=== PATIENT | male | born 1965 | race African-American/Black ===

== ENCOUNTER 2017-02-13 16:15 | Emergency (ER) | payer MEDICARE, OTHER ==
[~2017-02-13] VITALS: Ht 167.6 cm; Wt 90.0 kg
[2017-02-13 16:17] VITALS: BP 167/100; PULSE 82; RESP 20; TEMP 98.6; O2SAT 98
--- NOTE | 2017-02-13 16:26 | PD ---
Physical Exam Time Seen by Provider: 16:25 Narrative 51 y/o male here for evaluation of back pain, chronic, worse today. Vital signs reviewed. Seen at triage desk. Awaiting bed placement. Data Data Last Documented VS Vital Signs Date Time Temp Pulse Resp B/P Pulse Ox O2 Delivery O2 Flow Rate FiO2 02/13/17 16:17 98.6 82 20 167/100 98 Room Air MDM Medical Record Reviewed: Yes Supervised Visit with CHUYITA: Ayad Arredondo Feb 13, 2017 16:26
--- NOTE | 2017-02-13 18:41 | PD ---
HPI Chief Complaint: Back/ Neck Pain or Injury Time Seen by Provider: 18:15 Travel History International Travel<30 days: No Contact w/Intl Traveler<30days: No Traveled to known affect area: No History of Present Illness HPI 51-year-old male presents emergency department for evaluation of left low back pain radiating down into his buttocks times one week. Patient reports he was swimming and playing with his children in the pool approximately one week ago and developed back pain the following day. He does endorse that he has chronic low back pain which is usually treated with gabapentin and Motrin. He denies numbness, tingling, incontinence, fever or chills. PFSH Past Medical History Cardiovascular Problems: Yes (htn) Social History Tobacco Use: No Allergies-Medications (Allergen,Severity, Reaction): Coded Allergies: No Known Allergies (Unverified , 02/13/17) Reported Meds & Prescriptions Reported Meds & Active Scripts Active No Active Prescriptions or Reported Medications Review of Systems Except as stated in HPI: all other systems reviewed are Neg General / Constitutional: No: Fever Eyes: No: Visual changes HENT: No: Headaches Cardiovascular: No: Chest Pain or Discomfort Respiratory: No: Shortness of Breath Gastrointestinal: No: Abdominal Pain Genitourinary: No: Dysuria Musculoskeletal: Positive: Pain (left low back pain) Physical Exam Narrative GENERAL: Well-nourished, well-developed patient. SKIN: Focused skin assessment warm/dry. HEAD: Normocephalic. EYES: No scleral icterus. No injection or drainage. NECK: Supple, trachea midline. No JVD or lymphadenopathy. CARDIOVASCULAR: Regular rate and rhythm without murmurs, gallops, or rubs. RESPIRATORY: Breath sounds equal bilaterally. No accessory muscle use. GASTROINTESTINAL: Abdomen soft, non-tender, nondistended. MUSCULOSKELETAL: No cyanosis, or edema. 5 out of 5 strength in upper and lower extremities. Normal sensation. BACK: Nontender without obvious deformity. No CVA tenderness. Tender to palpation in the left lumbar paraspinous muscle region. Data Data Last Documented VS Vital Signs Date Time Temp Pulse Resp B/P Pulse Ox O2 Delivery O2 Flow Rate FiO2 02/13/17 16:17 98.6 82 20 167/100 98 Room Air MDM Medical Decision Making Medical Screen Exam Complete: Yes Emergency Medical Condition: Yes Differential Diagnosis Sciatica, lumbar strain, acute on chronic back pain Narrative Course 51-year-old male presents emergency department for evaluation of left low back pain radiating down into the left leg times one week. Patient reports history of chronic low back pain. He reports the pain started approximately one week ago after playing with his children the pool. He denies incontinence, numbness , tingling, weakness, fever or chills. Patient's physical exam is reassuring. He has normal strength and sensation in his lower extremities. He will be treated for sciatica. He was instructed to follow up with his primary care doctor agrees to plan. Diagnosis Primary Impression: Sciatica of left side Referrals: Primary Care Physician Additional Instructions: Take [id number] Motrin 366809 milligrams by mouth every 6-8 hours as needed for pain. Take the muscle relaxer as needed for muscle spasm. Follow-up with her primary care doctor. Scripts Cyclobenzaprine (Flexeril)10 Mg Tab10 Mg PO TID #12 TAB Ref 0 Prov:Milka Aiken 02/13/17 Disposition: 01 DISCHARGE HOME Condition: Stable Milka Aiken Feb 13, 2017 18:41
[2017-02-13] MEDS ORDERED: CYCL1TAB29 PO (18:42)
[2017-02-13] MEDS ORDERED: KETOROLAC TROMETHAMINE 60 MG/2 ML (IM) VIAL IM ONE (18:45)
== END 2017-02-13 19:34 | disposition home or self-care (01) ==
LOC: NEPK 16:15
DX: M54.32 Sciatica, left side (principal); I10 Essential (primary) hypertension
CPT/HCPCS: 96372; 99284; J1885

== ENCOUNTER 2017-02-16 20:27 | Emergency (ER) | payer MEDICARE, MEDICAID ==
[~2017-02-16] VITALS: Ht 180.3 cm; Wt 88.0 kg
[~2017-02-16 20:27] MED LIST: CYCL1TAB29 PO
[2017-02-16 20:28] VITALS: BP 177/103; PULSE 91; RESP 16; TEMP 99; O2SAT 99
--- NOTE | 2017-02-16 22:19 | PD ---
Physical Exam Time Seen by Provider: 22:18 Narrative 51 y/o male with lower back pain for 2 weeks. Seen for the same issue on February 13 but symptoms persist. Vital signs reviewed. Seen at triage desk. Awaiting bed placement. Data Data Last Documented VS Vital Signs Date Time Temp Pulse Resp B/P Pulse Ox O2 Delivery O2 Flow Rate FiO2 02/16/17 20:28 99.0 91 16 177/103 99 Room Air MDM Medical Record Reviewed: Yes Supervised Visit with CHUYITA: Ayad Arredondo Feb 16, 2017 22:18
[2017-02-17 01:55] VITALS: BP 131/82; PULSE 75; RESP 16; O2SAT 98
[2017-02-17] MEDS ORDERED: MEDR4PAK PO (02:40)
[2017-02-17] MEDS ORDERED: HYDR-3533 PO (02:40)
[2017-02-17] MEDS ORDERED: ACETAMINOPHEN/HYDROcodone 325 MG/5 MG TAB PO ONE (02:45)
[2017-02-17] MEDS ORDERED: DEXAMETHASONE SOD PHOS 20 MG/5 ML VIAL IM ONE (02:45)
--- NOTE | 2017-02-17 02:48 | PD ---
HPI Chief Complaint: Back/ Neck Pain or Injury Time Seen by Provider: 02:45 Travel History International Travel<30 days: No Contact w/Intl Traveler<30days: No Traveled to known affect area: No History of Present Illness HPI 51-year-old black male presents to emergency department complaints of acute exacerbation of his chronic back pain. He states that he is disabled with back pain. He has had surgery in the past. He has exacerbated his pain over the last 2 weeks by playing with his children. He was seen in the ER earlier this past week. He was given Flexeril. He states that this is not improving his symptoms. He states he normally takes Percocet when his pain gets flared up. He had been in pain management up until June. He states that he only takes ibuprofen and steroids on occasion. He states that when his pain gets severe like this he normally takes Percocet. He denies any acute bowel or bladder changes. Pain is moderate but can be severe with certain movements. He has radiation of pain down both legs. PFSH Past Medical History Narrative Medical Chronic back pain Cardiovascular Problems: Yes (htn) Tetanus Vaccination: < 5 Years Influenza Vaccination: No Past Surgical History Narrative Surgical Laminectomy Social History Alcohol Use: No Tobacco Use: Yes Substance Use: No Allergies-Medications (Allergen,Severity, Reaction): Coded Allergies: No Known Allergies (Unverified , 02/13/17) Reported Meds & Prescriptions Reported Meds & Active Scripts Active Medrol Dosepak (Methylprednisolone) 4 Mg Dspk 4 Mg PO DIRECTED Per Pharmacist direction Lortab (Hydrocodone-Acetaminophen) 5-325 Mg Tab 1 Tab PO Q6H PRN Flexeril (Cyclobenzaprine HCl) 10 Mg Tab 10 Mg PO TID Review of Systems Except as stated in HPI: all other systems reviewed are Neg Physical Exam Narrative GENERAL: Well-developed, well-nourished in no acute distress. Nontoxic appearing. HEAD: Normocephalic, atraumatic. EYES: Pupils equal round and reactive. Extraocular motions intact. No scleral icterus. No injection or drainage. ENT: TMs clear without erythema. The external auditory canals clear. Nose: clear . Posterior pharynx is pink and moist. No tonsillar edema or exudate. Uvula midline. Airway patent. NECK: Trachea midline.Supple, nontender, moves head freely. No central bony tenderness or spasm. CARDIOVASCULAR: Regular rate and rhythm without murmurs, gallops, or rubs. RESPIRATORY: Clear to auscultation. Breath sounds equal bilaterally. No wheezes , rales, or rhonchi. GASTROINTESTINAL: Abdomen soft, non-tender, nondistended. No hepato-splenomegaly , or palpable masses. No guarding. EXTREMITIES: No clubbing, cyanosis, or edema. No joint tenderness, effusion, or edema noted. BACK: Complains of bilateral paraspinal tenderness were so on the left. Patient is able to bend forward to 80. He is able to heel and toe stand. No saddle anesthesia. Without deformity or crepitance. No flank tenderness. Data Data Last Documented VS Vital Signs Date Time Temp Pulse Resp B/P Pulse Ox O2 Delivery O2 Flow Rate FiO2 02/17/17 01:55 75 16 131/82 98 Room Air 02/16/17 20:28 99.0 Orders Dexamethasone Inj (Decadron Inj) (02/17/17 02:45) Acetamin-Hydrocod 325-5 Mg ([place] 5-325 (02/17/17 02:45) MDM Medical Decision Making Medical Screen Exam Complete: Yes Emergency Medical Condition: Yes Medical Record Reviewed: Yes Differential Diagnosis MDM: High Differential diagnoses: Fracture, sprain, strain, dislocation, contusion, neurovascular injury Narrative Course This is acute exacerbation of chronic back pain. Patient's given 2 Lortab 5 and 10 mg of Decadron IM. Diagnosis Primary Impression: Acute exacerbation of chronic low back pain Patient Instructions: Narcotic given in the ED, General Instructions Additional Instructions: Rest. Ice for the next 3 days followed by heat . Medrol Dosepak and Lortab. No refill of chronic pain medicines to the ER. Follow-up with a primary care doctor in one week. Return to the ER for emergencies. Med/Other Pt SpecificInfo: Prescription(s) given Scripts Methylprednisolone Dosepak (Medrol Dosepak)4 Mg Dspk4 Mg PO DIRECTED #1 DSPK Ref 0 Per Pharmacist direction Prov:Cornell Nixon MD 02/17/17 Hydrocodone-Acetaminophen (Lortab)5-325 Mg Tab1 Tab PO Q6H PRN (PAIN) #20 TAB Prov:Cornell Nixon MD 02/17/17 Disposition: 01 DISCHARGE HOME Condition: Stable Braulio Alfaro Feb 17, 2017 02:48
== END 2017-02-17 03:03 | disposition home or self-care (01) ==
LOC: NEPD 20:27
DX: M54.5 Low back pain (principal); G89.29 Other chronic pain; Z79.899 Other long term (current) drug therapy; Z72.0 Tobacco use
CPT/HCPCS: 96372; 99284; J1100